=== PATIENT | male | born 1970 | race Caucasian/White ===

== ENCOUNTER 2016-10-28 01:02 | Emergency (ER) | payer SELFPAY ==
[~2016-10-28] VITALS: Ht 180.3 cm; Wt 77.0 kg
[2016-10-28 01:05] VITALS: BP 119/73; PULSE 86; RESP 16; TEMP 97.6; O2SAT 98
--- NOTE | 2016-10-28 02:58 | PD ---
HPI Chief Complaint: GI Complaint Time Seen by Provider: 02:55 Travel History International Travel<30 days: No Contact w/Intl Traveler<30days: No Traveled to known affect area: No History of Present Illness HPI 45-year-old male presents to the emergency department by private transportation for evaluation of one day of nausea vomiting and diarrhea without fever chills abdominal pain hematemesis coffee-ground emesis melena hematochezia. Patient does not recall specific dietary indiscretion well water ingestion or foreign travel. No other friends or family members with similar symptoms. Patient rates pain as none. Patient denies any chronic medical conditions or previous surgeries. PFSH Past Medical History Narrative Medical Rib fractures no surgeries substance use tobacco use nursing notes reviewed Blood Disorders: No Cancer: No Cardiovascular Problems: No Diminished Hearing: No Endocrine: No Genitourinary: No Immune Disorder: No Musculoskeletal: No Neurologic: No Psychiatric: No Reproductive: No Respiratory: No Immunizations Current: Yes Tetanus Vaccination: < 5 Years Influenza Vaccination: No ?: Not Social History Alcohol Use: No (DENIES) Tobacco Use: Yes (1 ppd) Substance Use: Yes (OPIATES, HEROIN) Allergies-Medications (Allergen,Severity, Reaction): Coded Allergies: *MDRO Multi-Drug Resistant Organism (Verified Adverse Reaction, Unknown, ) MRSA Foot Wound 06/14/2016 Reported Meds & Prescriptions Reported Meds & Active Scripts Active Zofran Odt (Ondansetron Odt) 4 Mg Tab 4 Mg SL Q6HR PRN Phenergan (Promethazine HCl) 25 Mg Tab 25 Mg PO Q6H PRN Review of Systems Except as stated in HPI: all other systems reviewed are Neg General / Constitutional: No: Fever, Chills HENT: No: Congestion Cardiovascular: No: Chest Pain or Discomfort Respiratory: No: Shortness of Breath Gastrointestinal: Positive: Nausea, Vomiting, Diarrhea, No: Abdominal Pain, Hematemesis, Hematochezia Genitourinary: No: Flank Pain Musculoskeletal: No: Myalgias, Arthralgias Skin: No Rash Neurologic: No: Weakness, Dizziness, Syncope, Focal Abnormalities, Coordination Problem Psychiatric: Positive: Substance Abuse, No: Anxiety Hematologic/Lymphatic: No: Lymph Node Enlargement Physical Exam Narrative GENERAL: Well-developed well-nourished male in no acute distress no respiratory distress SKIN: Warm and dry. HEAD: Normocephalic. EYES: No scleral icterus. No injection or drainage. NECK: Supple, trachea midline. No JVD or lymphadenopathy. CARDIOVASCULAR: Regular rate and rhythm without murmurs, gallops, or rubs. RESPIRATORY: Breath sounds equal bilaterally. No accessory muscle use. GASTROINTESTINAL: Abdomen soft, non-tender, nondistended. MUSCULOSKELETAL: No cyanosis, or edema. BACK: Nontender without obvious deformity. No CVA tenderness. Data Data Last Documented VS Vital Signs Date Time Temp Pulse Resp B/P Pulse Ox O2 Delivery O2 Flow Rate FiO2 10/28/16 04:19 20 10/28/16 01:05 97.6 86 119/73 98 Room Air Orders Complete Blood Count With Diff (10/28/16 03:59) Basic Metabolic Panel (Bmp) (10/28/16 03:59) Lipase (10/28/16 03:59) Iv Access Insert/Monitor (10/28/16 03:59) Ecg Monitoring (10/28/16 03:59) Oximetry (10/28/16 03:59) Ondansetron Inj (Zofran Inj) (10/28/16 04:00) Pantoprazole Inj (Protonix Inj) (10/28/16 04:00) Sodium Chlor 0.9% 1000 Ml Inj (Ns 1000 M (10/28/16 03:59) Sodium Chloride 0.9% Flush (Ns Flush) (10/28/16 04:00) Potassium Chloride (Kcl) (10/28/16 05:00) Labs Laboratory Tests Test 10/28/16 04:05 White Blood Count 9.4 TH/MM3 Red Blood Count 5.82 MIL/MM3 Hemoglobin 16.3 GM/DL Hematocrit 45.2 % Mean Corpuscular Volume 77.6 FL Mean Corpuscular Hemoglobin 28.0 PG Mean Corpuscular Hemoglobin 36.0 % Concent Red Cell Distribution Width 15.1 % Platelet Count 344 TH/MM3 Mean Platelet Volume 8.3 FL Neutrophils (%) (Auto) 77.7 % Lymphocytes (%) (Auto) 12.9 % Monocytes (%) (Auto) 9.0 % Eosinophils (%) (Auto) 0.0 % Basophils (%) (Auto) 0.4 % Neutrophils # (Auto) 7.3 TH/MM3 Lymphocytes # (Auto) 1.2 TH/MM3 Monocytes # (Auto) 0.8 TH/MM3 Eosinophils # (Auto) 0.0 TH/MM3 Basophils # (Auto) 0.0 TH/MM3 CBC Comment AUTO DIFF Differential Total Cells 100 Counted Neutrophils % (Manual) 76 % Band Neutrophils % 8 % Lymphocytes % 11 % Monocytes % 5 % Neutrophils # (Manual) 7.9 TH/MM3 Differential Comment FINAL DIFF MANUAL Platelet Estimate NORMAL Platelet Morphology Comment NORMAL Ovalocytes 1+ Sodium Level 139 MEQ/L Potassium Level 3.1 MEQ/L Chloride Level 98 MEQ/L Carbon Dioxide Level 33.5 MEQ/L Anion Gap 8 MEQ/L Blood Urea Nitrogen 21 MG/DL Creatinine 1.02 MG/DL Estimat Glomerular Filtration 79 ML/MIN Rate Random Glucose 101 MG/DL Calcium Level 10.3 MG/DL Lipase 147 U/L MDM Medical Decision Making Medical Screen Exam Complete: Yes Emergency Medical Condition: Yes Medical Record Reviewed: Yes Interpretation(s) CBC & BMP Diagram 10/28/16 04:05 Differential Diagnosis Viral syndrome, gastroenteritis, food borne illness, dehydration, electrolyte disturbance substance withdrawal Narrative Course IV access obtained specimens collected and sent for resulting patient administered Zofran and a liter of normal saline At 5:15 AM patient feeling well sitting upright drinking Gatorade. Patient reports that he feels well to go home. Diagnosis Primary Impression: Gastroenteritis Additional Impression: Dehydration Referrals: [facility] call for appointment Patient Assistance Program call for appointment Primary Care Physician call for appointment Patient Instructions: General Instructions Additional Instructions: Increase fluid hydration take medication as prescribed as needed for nausea vomiting follow-up with local clinic or primary care provider take acetaminophen as needed for fever 100.4F or greater return to the emergency department for any concerns or change in condition Med/Other Pt SpecificInfo: Prescription(s) given Scripts Ondansetron Odt (Zofran Odt)4 Mg Tab4 Mg SL Q6HR PRN (Nausea/Vomiting) #3 TAB Ref 0 Prov:Mayra Cadena MD 10/28/16 Promethazine (Phenergan)25 Mg Tab25 Mg PO Q6H PRN (Nausea/Vomiting) #10 TAB Ref 0 Prov:Mayra Cadena MD 10/28/16 Disposition: 01 DISCHARGE HOME Condition: Stable Mayra Cadena MD Oct 28, 2016 02:58 Mayra Cadena MD Oct 28, 2016 02:58
[2016-10-28] MEDS ORDERED: SODIUM CHLOR 0.9% 1000 ML INJ 1,000 ML IV ONE (03:59)
[2016-10-28] MEDS ORDERED: SODIUM CHLORIDE 0.9% FLUSH 5 ML FLUSH IVF PRN (04:00)
[2016-10-28] MEDS ORDERED: PANTOPRAZOLE SODIUM 40 MG VIAL IVP ONE (04:00)
[2016-10-28] MEDS ORDERED: ONDANSETRON HCL 4 MG/2 ML VIAL IVP ONE (04:00)
[2016-10-28 04:15] LABS: AUTOMATED NEUTROPHIL # 7.3 TH/MM3 (1.8-7.7); BASOPHIL % 0.4 % (0.0-2.0); HEMATOCRIT 45.2 % (39.0-51.0); LYMPH % 12.9 % (9.0-44.0); LYMPHOCYTE # 1.2 TH/MM3 (1.0-4.8); MEAN CELL VOLUME 77.6 FL (80.0-100.0); NEUT % 77.7 % (16.0-70.0); PLATELET COUNT 344 TH/MM3 (150-450); RED BLOOD COUNT 5.82 MIL/MM3 (4.50-5.90); RED CELL DISTRIBUTION WIDTH 15.1 % (11.6-17.2); WHITE BLOOD COUNT 9.4 TH/MM3 (4.0-11.0)
[2016-10-28 04:17] LABS: HEMO FLAGS AUTO DIFF
[2016-10-28 04:19] VITALS: RESP 20
[2016-10-28 04:46] LABS: BICARBONATE 33.5 MEQ/L (21.0-32.0); POTASSIUM 3.1 MEQ/L (3.5-5.1)
[2016-10-28 04:54] LABS: BANDS 8 % (0-6); NEUTROPHIL # MANUAL DIFF 7.9 TH/MM3 (1.8-7.7); OVALOCYTES 1+ (NORMAL); PLATELET ESTIMATE SMEAR NORMAL (NORMAL); PLATELET MORPHOLOGY NORMAL (NORMAL); POLYS (SEG NEUTROPHILS) 76 % (16-70); SCAN/DIFF FINAL DIFF MANUAL; WBC DIFF SAMPLE 100
[2016-10-28] MEDS ORDERED: POTASSIUM CHLORIDE 20 MEQ CONTROLLED RELEASE TAB PO ONE (05:00)
[2016-10-28] MEDS ORDERED: PROM25TA5 PO (05:20)
[2016-10-28] MEDS ORDERED: ZOFR4TAB3 SL (05:20)
== END 2016-10-28 06:47 | disposition home or self-care (01) ==
LOC: NEPC 01:02
DX: K52.9 Noninfective gastroenteritis and colitis, unspecified (principal); E86.0 Dehydration
CPT/HCPCS: 80048; 83690; 85007; 85027; 96361; 96374; 96375; 99284; C9113; J2405; J7030

== ENCOUNTER 2016-11-04 17:47 | Emergency (ER) | payer SELFPAY ==
[~2016-11-04] VITALS: Ht 180.3 cm; Wt 75.0 kg
[~2016-11-04 17:47] MED LIST: PROM25TA5 PO; ZOFR4TAB3 SL
[2016-11-04 17:51] VITALS: BP 143/78; PULSE 83; RESP 12; TEMP 97.6; O2SAT 99
[2016-11-04] MEDS ORDERED: IBUP800T23 PO (19:27)
[2016-11-04] MEDS ORDERED: BACT800T5 PO (19:27)
[2016-11-04] MEDS ORDERED: CEPH-460 PO (19:27)
--- NOTE | 2016-11-04 19:27 | PD ---
HPI Chief Complaint: Skin Problem Time Seen by Provider: 19:25 Travel History International Travel<30 days: No Contact w/Intl Traveler<30days: No Traveled to known affect area: No History of Present Illness HPI 45-year-old male with no significant medical history presents to emergency department for evaluation of an abscess on the lateral aspect of the posterior neck. Patient states it's been there for approximately week. He began to drain yesterday. 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 Denies any fever or chills. Moderate pain at the site. He has no other symptoms to report at this time [facility] Past Medical History Medical History: Denies Significant Hx Blood Disorders: No Cancer: No Cardiovascular Problems: No Diminished Hearing: No Endocrine: No Genitourinary: No Immune Disorder: No Musculoskeletal: No Neurologic: No Psychiatric: No Reproductive: No Respiratory: No Immunizations Current: Yes Social History Alcohol Use: No (DENIES) Tobacco Use: Yes (1 ppd) Substance Use: Yes (OPIATES, HEROIN) Allergies-Medications (Allergen,Severity, Reaction): Coded Allergies: *MDRO Multi-Drug Resistant Organism (Verified Adverse Reaction, Unknown, ) MRSA Foot Wound 06/14/2016 Reported Meds & Prescriptions Reported Meds & Active Scripts Active Ibuprofen 800 Mg Tab 800 Mg PO Q8H PRN Keflex (Cephalexin) 500 Mg Cap 500 Mg PO Q6H 5 Days Bactrim DS (Sulfamethoxazole-Trimethoprim) 800-160 Mg Tab 1 Tab PO BID Zofran Odt (Ondansetron Odt) 4 Mg Tab 4 Mg SL Q6HR PRN Phenergan (Promethazine HCl) 25 Mg Tab 25 Mg PO Q6H PRN Review of Systems Except as stated in HPI: all other systems reviewed are Neg Physical Exam Narrative GENERAL: Well-nourished male patient no acute distress SKIN: There is an indurated area in the lateral aspect of the right side of the posterior neck which measures about 3 cm in diameter. It is fluctuant and draining copious amounts of purulent drainage.. There is a zone of inflammation around it but no lymphangitis. HEAD: Atraumatic. Normocephalic. EYES: Pupils equal and round. No scleral icterus. No injection or drainage. ENT: No nasal bleeding or discharge. Mucous membranes pink and moist. NECK: Trachea midline. No JVD. CARDIOVASCULAR: Regular rate and rhythm. No murmur appreciated. RESPIRATORY: No accessory muscle use. Clear to auscultation. Breath sounds equal bilaterally. Data Data Last Documented VS Vital Signs Date Time Temp Pulse Resp B/P Pulse Ox O2 Delivery O2 Flow Rate FiO2 11/04/16 17:51 97.6 83 12 143/78 99 Room Air Orders Sulfamet-Trimeth Ds 800-160 Mg (Bactrim (11/04/16 19:30) Cephalexin (Keflex) (11/04/16 19:30) Ketorolac Inj (Toradol Inj) (11/04/16 19:30) [facility] Medical Decision Making Medical Screen Exam Complete: Yes Emergency Medical Condition: Yes Medical Record Reviewed: Yes Differential Diagnosis Abscess versus erysipelas versus folliculitis versus cellulitis Narrative Course 45-year-old male presents to emergency department for evaluation of an abscess on the posterior neck. Abscess is already draining. It is irrigated and cultures obtained. Patient will be started on oral antibiotics. He agrees to return immediately with any acute worsening of symptoms. Diagnosis Primary Impression: Abscess, neck Referrals: Primary Care Physician Patient Instructions: Abscess Incision and Drainage (ED), General Instructions Additional Instructions: Warm compresses Start antibiotic in the morning and take them until they are all gone Follow-up with primary care provider Return immediately to the emergency department with any acute worsening of symptoms Med/Other Pt SpecificInfo: Prescription(s) given Scripts Ibuprofen 800 Mg [id number] Mg PO Q8H PRN (Pain/Inflammation) #30 TAB Ref 0 Prov:Jolly Aj 11/04/16 Cephalexin (Keflex)500 Mg [id number] Mg PO Q6H 5 Days Ref 0 Prov:Jolly Aj 11/04/16 Sulfamethoxazole-Trimethoprim (Bactrim DS)800-160 Mg Tab1 Tab PO BID #20 TAB Ref 0 Prov:Jolly Aj 11/04/16 Disposition: 01 DISCHARGE HOME Condition: Stable Jolly Aj Nov 04, 2016 19:27
[2016-11-04] MEDS ORDERED: CEPHALEXIN MONOHYDRATE 500 MG CAP PO ONE (19:30)
[2016-11-04] MEDS ORDERED: KETOROLAC TROMETHAMINE 60 MG/2 ML (IM) VIAL IM ONE (19:30)
[2016-11-04] MEDS ORDERED: SULFAMETHOXAZOLE-TRIMETHOPRIM DS 800-160 MG TAB PO ONE (19:30)
== END 2016-11-04 19:57 | disposition home or self-care (01) ==
LOC: NEPB 17:47
DX: L02.11 Cutaneous abscess of neck (principal); F17.210 Nicotine dependence, cigarettes, uncomplicated; F11.90 Opioid use, unspecified, uncomplicated; F15.90 Other stimulant use, unspecified, uncomplicated; B95.62 Methicillin resistant Staphylococcus aureus infection as the cause of diseases classified elsewhere
CPT/HCPCS: 86403; 87070; 87186; 96372; 99283; J1885